=== PATIENT | male | born 1960 | race African-American/Black ===

== ENCOUNTER 2021-02-27 11:14 | Emergency (ER) | payer MEDICAID ==
[~2021-02-27] VITALS: Ht 167.6 cm; Wt 80.0 kg
[2021-02-27 11:21] VITALS: BP 134/93
[2021-02-27] MEDS ORDERED: CEPH500T MT (11:25)
== END 2021-02-27 11:28 | disposition home or self-care (01) ==
LOC: ER 11:14
DX: L03.116 Cellulitis of left lower limb (principal); I10 Essential (primary) hypertension
CPT/HCPCS: 99283